=== PATIENT | male | born 1985 | race African-American/Black ===

== ENCOUNTER 2020-04-08 21:25 | Emergency (ER) | payer OTHER, SELFPAY ==
[2020-04-08 21:33] VITALS: BP 140/102; BP 142/70; PULSE 67; PULSE 90; RESP 16; TEMP 37.1; O2SAT 97; BMI 23.4
[2020-04-08 22:09] LABS: MANUAL DIFF FLAG NO
[2020-04-08 22:10] LABS: Glucose Urine UA NEG (NEG); Leukocyte Esterase Urine NEG (NEG); Nitrite Urine NEG (NEG); Specific Gravity - Urine <= 1.005 (1.005-1.025); Urine Blood NEG (NEG); Urine Ketones NEG (NEG); Urine Protein NEG (NEG-TRACE)
[2020-04-08 22:11] LABS: Basophils Percent Auto 0.5 % (0-2); Eosinophils Absolute Auto 0.1 X10*3/uL (0.0-0.4); Hematocrit 39.2 % (42-52); Hemoglobin 13.5 g/dl (14.0-18.0); Imm Gran Abs Auto 0.01 X10*3/uL (0.00-0.03); Imm Gran Pct Auto 0.2 % (0.0-0.4); Lymphocytes Absolute Auto 2.5 X10*3/uL (1.2-4.9); Lymphocytes Percent Auto 41.3 % (20-40); Mean Corpuscular HGB Conc 34.4 g/dl (31.0-36.0); Mean Corpuscular Hemoglobin 31.7 pg (27.0-33.0); Mean Platelet Volume 10.3 fL (9.4-12.4); Monocytes Absolute Auto 0.6 X10*3/uL (0.1-1.2); Neutrophils Absolute Auto 2.8 X10*3/uL (2.0-8.3); Platelet Count 199 X10*3/uL (160-400); Red Blood Count 4.26 X10*6/uL (4.60-5.80); Red Cell Distribution Width 11.9 % (11.0-16.0)
[2020-04-08 22:12] LABS: Appearance Urine CLEAR; Color Urine YELLOW; UACC Culture Trigger NO
[2020-04-08 22:13] LABS: Glucose, Whole Blood 80 mg/dL (60-115)
[2020-04-08 22:37] LABS: Ethanol 382 mg/dL
[2020-04-08 22:40] LABS: Alanine Aminotransferase 41 U/L (0-40); Albumin Level 4.7 g/dL (3.5-5.0); Alkaline Phosphatase 58 U/L (39-117); Anion Gap 14 (12-20); Aspartate Amino Transferase 62 U/L (5-37); Bilirubin Total 1.7 mg/dL (0.0-1.0); Blood Urea Nitrogen 13 mg/dL (9-16); Calcium 9.1 mg/dL (8.4-10.2); Carbon Dioxide 26 mmol/L (22-29); Chloride 107 mmol/L (96-108); Creatinine Clr Calc Pharmacy 95.5; Estimated Glomerular Filt Rate > 60; Glucose Random 91 mg/dL (60-115); Potassium 3.2 mmol/l (3.3-5.1); Sodium 144 mmol/L (135-145); Total Protein 7.6 g/dL (6.5-8.0)
[2020-04-08 22:50] LABS: Amphetamine Screen Urine Not Detected (Not Detect); Barbiturates, Urine Not Detected (Not Detect); Benzodiazepines Screen Urine Not Detected (Not Detect); Cannabinoid Screen Urine POSITIVE (Not Detect); Cocaine Screen Urine Not Detected (Not Detect); Opiate Screen Urine Not Detected (Not Detect); Phencyclidine Screen Urine Not Detected (Not Detect)
--- NOTE | 2020-04-08 23:04 | ED_ITS ---
HPI - Alcohol General Chief Complaint: ETOH/Substance Use Stated Complaint: etoh Time Seen by Provider: 04/08/20 21:46 History of Present Illness HPI narrative: This is a 34-year-old male who is brought in by EMS after being found walking around through traffic and patient reports he has been drinking a lot today. Otherwise, he denies any fevers, chills, nausea, vomiting, diarrhea, urinary pain /burning /frequency, shortness of breath, chest pain / palpitations. Related Data Allergies Allergy/AdvReac Type Severity Reaction Status Date / Time shellfish derived Allergy Unknown ANAPHYLAXIS Unverified 03/08/20 15:38 [SHELLFISH DERIVED] shellfish Allergy Unknown anaphylaxis Uncoded 10/29/15 00:00 Review of Systems Review of Systems: Pertinent positives and negatives as stated in HPI 10 point review of systems otherwise negative. PMFSH Past Medical History Source: nursing notes reviewed Medical History No known health problems Social History Social History Alcohol intake: current Alcohol intake frequency: a few times a week Alcohol type: hard liquor Smoking Status: Current every day smoker Use of substances other than those prescribed or required for medical reasons: No Advance Directives: No Advance Directives Information Provided: No Physical Exam 2 Vital Signs: Vital Signs: Vital Signs Temp Pulse Resp BP Pulse Ox 04/09/20 06:25 98.2 F 88 18 116/82 99 04/09/20 03:25 74 18 106/78 98 04/08/20 23:34 69 18 106/47 L 99 04/08/20 21:33 98.7 F 67 16 140/102 H 97 Body Mass Index 23.4 VITAL SIGNS: Reviewed. GENERAL: Well developed, well nourished, in no acute distress , smells of alcohol. HEAD: Normocephalic/atraumatic, EYES: PERRLA, EOMI intact without pain, no nystagmus/pallor/icterus noted EARS: Ext canals without abnormality, TMs non-bulging and non-erythematous NOSE: Nares patent bilateral OROPHARYNX: no oral lesions noted, posterior pharynx clear and non-erythematous without noted tonsillar enlargement/erythema/exudates NECK: Supple, no adenopathy LUNGS: Normal breath sounds. No adventitious sounds or accessory muscle use. SpO2<97%> CARDIOVASCULAR: Regular rate and rhythm without noted murmurs, no JVD or lower extremity edema. ABDOMEN: Soft, non-tender, non-distended with bowel sounds. No rigidity. No guarding. No palpable masses or hernias noted MUSCULOSKELETAL: No tenderness, deformities, or effusions noted on gross inspection. EXTREMITIES: No cyanosis, clubbing or edema. SKIN: Inspection of the skin reveals no rashes, ulcerations, jaundice, pallor, or petechiae. NEUROLOGIC: Alert and oriented x 4. Strength and sensation to light touch were grossly intact x 4. Course Course Course Narrative: This is a 34-year-old male with history and clinical presentation most consistent with alcohol intoxication. On review of all investigations there are no acute findings other than a very mild hypokalemia which will be repleted with p.o. medication. Patient does not wish for detox at this time and will be discharged when clinically sober. Reevaluation(s) Reevaluation #1: On re-evaluation patient is determined to be clinically sober and stable for discharge to home. Time: 06:32 [facility] [place] - Alcohol Lab Data Result diagrams: 04/08/20 22:01 04/08/20 22:01 Labs: Lab Results 04/08/20 04/08/20 04/08/20 Range/Units 22:01 22:01 22:01 WBC 6.0 (4.8-10.8) X10*3/uL RBC 4.26 L (4.60-5.80) X10*6/uL Hgb 13.5 L (14.0-18.0) g/dl Hct 39.2 L (42-52) % MCV 92.0 (80-98) fL MCH 31.7 (27.0-33.0) pg MCHC 34.4 (31.0-36.0) g/dl RDW 11.9 (11.0-16.0) % Plt Count 199 (160-400) X10*3/uL MPV 10.3 (9.4-12.4) fL Immature Gran % (Auto) 0.2 (0.0-0.4) % Neut % (Auto) 47.0 (45-73) % Lymph % (Auto) 41.3 H (20-40) % King % (Auto) 10.0 (2-11) % Eos % (Auto) 1.0 (0-4) % Baso % (Auto) 0.5 (0-2) % Lymph # (Auto) 2.5 (1.2-4.9) X10*3/uL King # (Auto) 0.6 (0.1-1.2) X10*3/uL Eos # (Auto) 0.1 (0.0-0.4) X10*3/uL Baso # (Auto) 0.0 (0.0-0.2) X10*3/uL Abs Immat Gran (auto) 0.01 (0.00-0.03) X10*3/uL Absolute Neuts (auto) 2.8 (2.0-8.3) X10*3/uL Absolute Nucleated RBC 0.000 (0.0-0.012) X10*3/uL Nucleated RBC % (auto) 0.0 (0.0-0.2) /100WBC Sodium 144 (135-145) mmol/L Potassium 3.2 L (3.3-5.1) mmol/l Chloride 107 (96-108) mmol/L Carbon Dioxide 26 (22-29) mmol/L Anion Gap 14 (12-20) BUN 13 (9-16) mg/dL Creatinine 1.10 (0.5-1.4) mg/dL Estim Creat Clear Calc 95.5 Estimated GFR > 60 POC Glucose (60-115) mg/dL Random Glucose 91 (60-115) mg/dL Calcium 9.1 (8.4-10.2) mg/dL Total Bilirubin 1.7 H (0.0-1.0) mg/dL AST 62 H (5-37) U/L ALT 41 H (0-40) U/L Alkaline Phosphatase 58 (39-117) U/L Total Protein 7.6 (6.5-8.0) g/dL Albumin 4.7 (3.5-5.0) g/dL Urine Color YELLOW Urine Appearance CLEAR Urine pH 7.0 (5.0-8.0) Ur Specific [place] <= 1.005 (1.005-1.025) Urine Protein NEG (NEG-TRACE) MG/DL Urine Glucose (UA) NEG (NEG) MG/DL Urine Ketones NEG (NEG) MG/DL Urine Blood NEG (NEG) Urine Nitrite NEG (NEG) Ur Leukocyte Esterase NEG (NEG) Urine Opiates Screen (Not Detect) Ur Barbiturates Screen (Not Detect) Ur Phencyclidine Scrn (Not Detect) Ur Amphetamines Screen (Not Detect) U Benzodiazepines Scrn (Not Detect) Urine Cocaine Screen (Not Detect) U Marijuana (THC) Screen (Not Detect) Ethyl Alcohol mg/dL 04/08/20 04/08/20 04/08/20 Range/Units 22:01 22:01 22:09 WBC (4.8-10.8) X10*3/uL RBC (4.60-5.80) X10*6/uL Hgb (14.0-18.0) g/dl Hct (42-52) % MCV (80-98) fL MCH (27.0-33.0) pg MCHC (31.0-36.0) g/dl RDW (11.0-16.0) % Plt Count (160-400) X10*3/uL MPV (9.4-12.4) fL Immature Gran % (Auto) (0.0-0.4) % Neut % (Auto) (45-73) % Lymph % (Auto) (20-40) % King % (Auto) (2-11) % Eos % (Auto) (0-4) % Baso % (Auto) (0-2) % Lymph # (Auto) (1.2-4.9) X10*3/uL King # (Auto) (0.1-1.2) X10*3/uL Eos # (Auto) (0.0-0.4) X10*3/uL Baso # (Auto) (0.0-0.2) X10*3/uL Abs Immat Gran (auto) (0.00-0.03) X10*3/uL Absolute Neuts (auto) (2.0-8.3) X10*3/uL Absolute Nucleated RBC (0.0-0.012) X10*3/uL Nucleated RBC % (auto) (0.0-0.2) /100WBC Sodium (135-145) mmol/L Potassium (3.3-5.1) mmol/l Chloride (96-108) mmol/L Carbon Dioxide (22-29) mmol/L Anion Gap (12-20) BUN (9-16) mg/dL Creatinine (0.5-1.4) mg/dL Estim Creat Clear Calc Estimated GFR POC Glucose 80 (60-115) mg/dL Random Glucose (60-115) mg/dL Calcium (8.4-10.2) mg/dL Total Bilirubin (0.0-1.0) mg/dL AST (5-37) U/L ALT (0-40) U/L Alkaline Phosphatase (39-117) U/L Total Protein (6.5-8.0) g/dL Albumin (3.5-5.0) g/dL Urine Color Urine Appearance Urine pH (5.0-8.0) Ur Specific [place] (1.005-1.025) Urine Protein (NEG-TRACE) MG/DL Urine Glucose (UA) (NEG) MG/DL Urine Ketones (NEG) MG/DL Urine Blood (NEG) Urine Nitrite (NEG) Ur Leukocyte Esterase (NEG) Urine Opiates Screen Not Detected (Not Detect) Ur Barbiturates Screen Not Detected (Not Detect) Ur Phencyclidine Scrn Not Detected (Not Detect) Ur Amphetamines Screen Not Detected (Not Detect) U Benzodiazepines Scrn Not Detected (Not Detect) Urine Cocaine Screen Not Detected (Not Detect) U Marijuana (THC) Screen POSITIVE H (Not Detect) Ethyl Alcohol 382 H* mg/dL Discharge Plan Discharge Clinical Impression: Hypokalemia Alcoholic intoxication Qualifiers: Complication of substance-induced condition: uncomplicated Qualified Code(s): F10.920 - Alcohol use, unspecified with intoxication, uncomplicated Patient Disposition: Home, Self-Care Instructions: Alcohol Intoxication (ED) Additional Instructions: The patient and/or family acknowledge understanding of results (as applicable), diagnosis, treatment plan, need for follow up, and symptoms that should prompt a return to the emergency room. Referrals: Physician,Unknown [Primary Care Provider] - 2 days
[2020-04-08 23:34] VITALS: BP 106/47; PULSE 69; RESP 18; O2SAT 99
--- NOTE | 2020-04-08 23:42 | PC.NURSE ---
report taken from didier gomez. pt sleeping in bed, equal and non labored rr. pt vitals wnl. pending sober to be d/c in am
[2020-04-09 03:25] VITALS: BP 106/78; PULSE 74; RESP 18; O2SAT 98
--- NOTE | 2020-04-09 05:59 | PC.NURSE ---
pt sleeping at this time. pending d.c home at this time
[2020-04-09 06:25] VITALS: BP 116/82; PULSE 88; RESP 18; TEMP 36.8; O2SAT 99
--- NOTE | 2020-04-09 06:25 | PC.NURSE ---
pt ambulated to bathroom, in nad. pending d.c vitals wnl
--- NOTE | 2020-04-09 07:09 | PC.NURSE ---
pt refusing to leave because i need to get my abdomen checked because theres something moving in my right lower abd . nurse coming on giuliana gomez aware
--- NOTE | 2020-04-09 07:45 | PC.NURSE ---
PT NOT FOUND AT BEDSIDE FOR D/C PAPERWORK. HOSPITAL ATTIRE FOUND AT BEDSIDE. MD AWARE THAT PT LEFT WITH OUT D/C PAPERWORK
== END 2020-04-09 07:48 | disposition home or self-care (01) ==
PROVIDERS: Emergency Provider Student in an Organized Health Care Education/Training Program
DX: F10.920 Alcohol use, unspecified with intoxication, uncomplicated (principal); Y90.8 Blood alcohol level of 240 mg/100 ml or more; F17.200 Nicotine dependence, unspecified, uncomplicated
CPT/HCPCS: 36415; 80053; 80307; 80320; 81003; 82947; 85025; 99283; 99284

== ENCOUNTER 2020-04-27 14:53 | Emergency (ER) | payer OTHER, SELFPAY ==
--- NOTE | 2020-04-27 15:03 | ED_ITS ---
HPI - Alcohol General Chief Complaint: ETOH/Substance Use Stated Complaint: etoh Source: patient and EMS Mode of arrival: ambulatory Limitations: no limitations History of Present Illness HPI narrative: Patient admits to drinking alcohol. Patient presently is intoxicated. Related Data Allergies Allergy/AdvReac Type Severity Reaction Status Date / Time shellfish derived Allergy Unknown ANAPHYLAXIS Unverified 03/08/20 15:38 [SHELLFISH DERIVED] shellfish Allergy Unknown anaphylaxis Uncoded 10/29/15 00:00 Review of Systems Review of Systems: Yes all other systems are reviewed and are negative Constitutional: Constitutional: Reports as per HPI and Reports no additional constitutional complaints Eyes: Eyes: Reports as per HPI and Reports no additional eye complaints ENT: Reports system reviewed and no additional complaints, except as documented and Reports as per HPI Cardiovascular: Cardiovascular: Reports as per HPI and Reports no additional cardiovascular complaints Respiratory: Respiratory: Reports as per HPI and Reports no additional respiratory complaints Gastrointestinal: Gastrointestinal: Reports as per HPI and Reports no additional gastrointestinal complaints Genitourinary: Genitourinary: Reports no additional male genitourinary complaints and Reports as per HPI Musculoskeletal: Musculoskeletal: Reports no additional musculoskeletal complaints and Reports as per HPI Integumentary/Breasts: Skin/Breast: Reports system reviewed and no additional complaints, except as docu and Reports as per HPI Neurologic: Reports system reviewed and no additional complaints, except as documented and Reports as per HPI Psychiatric: Psychiatric: Reports no additional psychiatric complaints and Reports as per HPI PMFSH Past Medical History Medical History No known health problems Social History Social History Alcohol intake: current Alcohol intake frequency: a few times a week Alcohol type: hard liquor Smoking Status: Current every day smoker Advance Directives: No Advance Directives Information Provided: Yes Physical Exam Vital Signs: Vital Signs: Last Vital Signs Temp 98 F 04/27/20 15:22 Pulse 96 04/27/20 15:22 Resp 18 04/27/20 15:22 BP 126/74 04/27/20 15:22 Pulse Ox 99 04/27/20 15:22 Body Mass Index 23.0 Const: General: cooperative, healthy appearing, comfortable and no acute distress Orientation/consciousness: patient oriented x3 HENMT: Head: Yes normal to inspection, Yes No palpable skull fracture present, Yes normocephalic, Yes atraumatic, No abrasion, No Pandya's sign, No contusion, No cranial bruits, No hematoma, No laceration, No palpable skull fracture, No raccoon eyes, No scalp tenderness, No Temporal artery tenderness present and No periorbital ecchymosis Eyes: General: appearance normal, both eyes and all related structures Visual Watters: normal visual watters by confrontation Neck: Neck: Yes normal visual inspection, Yes full ROM, Yes no lymphadenopathy, Yes no meningeal signs, Yes trachea midline and No tender Chest: Chest palpation & inspection: normal inspection of the chest, normal pa lpation of entire chest wall and no localized rib tenderness Resp: Effort & Inspection: normal respiratory effort, able to speak in complete sentences, normal respiratory pattern, no audible wheezes and no cough Auscultation: clear to auscultation bilaterally, no crackles, no rales, no rhonchi and no wheezes Cardio: Jugular venous distension: no JVD Heart sounds: S1 normal heart sound present and S2 normal heart sound present GI: Inspection: Yes normal to inspection and No abdominal wall ecchymosis Palpation (GI): Soft to palpation, not firm, nontender, no guarding and not rigid : General: No CVA tenderness and Yes no CVA tenderness Back/Spine/Pelvis: Back: no CVA tenderness, No CVA tenderness and No back tenderness Skin: General skin exam: no rashes or lesions noted Neuro: Other: Alcohol smell on breath. General: patient oriented x3, gait normal, no meningeal signs and CN's II-XI intact bilaterally Cranial nerves: Yes CN's II-XII intact bilaterally Course Course Course Narrative: Patient will be allowed to sleep in the ER and sober up before discharge. Patient will be re-evaluated. Reevaluation(s) Reevaluation #1: [place] of care team spoke with patient and patient agrees for detox program. [place] request labs to be drawn on patient so patient could be referred to detox program. Time: 15:41 Reevaluation #2: Patient was sent for imaging of head and neck due to him stating while intoxicated that he has a headache. Rule out bleed or neck fracture. Case signed out to FRANKO Barboza Time: 17:55 MDM - Alcohol MDM Narrative Medical decision making narrative: alcohol intoxication Discharge Plan Discharge Clinical Impression: Alcoholic intoxication Patient Disposition: Home, Self-Care Instructions: Alcohol Intoxication (ED), Abuse of Alcohol (ED) Additional Instructions: return to the ED for any headache, weakness, nausea, vomiting, abdominal pain, tremors, fever, chills, headache, dizziness, or any other concerning symptoms. Please follow-up with the detox program you were referred to Referrals: Beto Lau MD [Primary Care Provider] - 2 days ( alcohol abuse) Print Language: [place] Timorese
[2020-04-27 15:22] VITALS: BP 124/72; BP 126/74; PULSE 92; PULSE 96; RESP 18; TEMP 36.6; O2SAT 98; O2SAT 99; BMI 23.0
--- NOTE | 2020-04-27 15:42 | MHC.CARE ---
Addiction Consult Service note: Patient is a 34 year old Thai speaking male who presented to [facility] ED via EMS intoxicated. Patient reports he is interested detox. Patient reports he needs to get into a program. Patient willing to go to [place] or [place], stating his girlfriend lives in [place]. [facility] reports that they have 6 male beds available at this time. Patient's information has been faxed to [facility] (fax: [phone]) and [facility] (fax:[phone]). Labs have been ordered and will be faxed when they are available.
--- NOTE | 2020-04-27 16:06 | PC.NURSE ---
yonatan and priya olguin md aware.
--- NOTE | 2020-04-27 16:32 | CT_ITS ---
EXAMINATION: CT HEAD WITHOUT CONTRAST CT CERVICAL SPINE WITHOUT CONTRAST CLINICAL INFORMATION: Headache. COMPARISON: . CT scan facial bones 10/11/2018, 03/13/2012. CT of head 03/24/2015. CT cervical spine 05/27/2014 TECHNIQUE: Imaging was performed from the skull base to vertex without intravenous administration of contrast. In addition, helical noncontrast CT imaging was acquired through the cervical spine and source images were reviewed along with axial reconstructions and sagittal and coronal MPRs. [This CT examination was performed using dose optimization techniques as appropriate, variously including the following: *Automated exposure control *Adjustment of mA and/or kV according to patient size (this includes techniques or standardized protocols for targeted exams where dose is matched to indication/reason for exam; i.e. extremities or head) *Use of iterative reconstruction technique] DLP: 988 mGy-cm FINDINGS: HEAD: No intracranial mass, hemorrhage, or midline shift is visualized. The ventricles and sulci are age-appropriate. No extra-axial collections are identified. The paranasal sinuses and mastoid air cells are well aerated. 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 This is unchanged since CAT scan 03/13/2012 CERVICAL SPINE: There is no evidence of acute cervical spine fracture. Vertebral bodies remain normal in height. Cervical vertebrae have normal alignment. Cervical disc heights are normal. The facet joints are normal. No pre- or paravertebral soft tissue abnormality is identified. Limited assessment of the lung apices is unremarkable. CT/CT cervical spine wo con IMPRESSION: 1. No acute intracranial pathology. 2. No CT evidence of acute cervical spine fracture or traumatic subluxation
[2020-04-27] MEDS: Acetaminophen 325 MG TABLET 650 MG PO (18:16)
--- NOTE | 2020-04-27 19:00 | PC.NURSE ---
RN to RN report received from Dada Estevez RN. Pt laying in bed at this time, appears to be resting comfortably. Will continue to monitor.
--- NOTE | 2020-04-27 19:44 | PC.NURSE ---
Labs drawn and sent for analysis. Awaiting results. Pt ambulated to bathroom and back with slightly unsteady gait. Pt is calm/cooperative/pleasant. Pt returned to ED Bed 22H without issue. Will continue to monitor.
[2020-04-27 19:47] LABS: Basophils Percent Auto 0.5 % (0-2); Hematocrit 41.1 % (42-52); Imm Gran Abs Auto 0.02 X10*3/uL (0.00-0.03); Imm Gran Pct Auto 0.2 % (0.0-0.4); Lymphocytes Absolute Auto 2.4 X10*3/uL (1.2-4.9); Lymphocytes Percent Auto 29.8 % (20-40); MANUAL DIFF FLAG NO; Mean Corpuscular HGB Conc 34.1 g/dl (31.0-36.0); Mean Corpuscular Hemoglobin 31.6 pg (27.0-33.0); Mean Corpuscular Volume 92.8 fL (80-98); Mean Platelet Volume 9.6 fL (9.4-12.4); Monocytes Absolute Auto 0.5 X10*3/uL (0.1-1.2); Monocytes Percent Auto 5.9 % (2-11); Neutrophils Absolute Auto 5.2 X10*3/uL (2.0-8.3); Neutrophils Percent Auto 63.6 % (45-73); Platelet Count 244 X10*3/uL (160-400); Red Blood Count 4.43 X10*6/uL (4.60-5.80); Red Cell Distribution Width 12.6 % (11.0-16.0); White Blood Count 8.2 X10*3/uL (4.8-10.8)
[2020-04-27 20:16] LABS: Ethanol 289 mg/dL
[2020-04-27 20:20] LABS: Alanine Aminotransferase 15 U/L (0-40); Albumin Level 4.8 g/dL (3.5-5.0); Alkaline Phosphatase 63 U/L (39-117); Anion Gap 16 (12-20); Aspartate Amino Transferase 25 U/L (5-37); Bilirubin Total 0.3 mg/dL (0.0-1.0); Blood Urea Nitrogen 16 mg/dL (9-16); Calcium 8.4 mg/dL (8.4-10.2); Carbon Dioxide 22 mmol/L (22-29); Chloride 110 mmol/L (96-108); Creatinine Clr Calc Pharmacy 105.9; Estimated Glomerular Filt Rate > 60; Glucose Random 67 mg/dL (60-115); Potassium 3.8 mmol/l (3.3-5.1); Sodium 144 mmol/L (135-145); Total Protein 7.9 g/dL (6.5-8.0)
[2020-04-27 21:58] VITALS: BP 147/94; PULSE 86; RESP 16; O2SAT 97
--- NOTE | 2020-04-27 21:58 | MHC.CARE ---
CARE team sent patient labs to [facility] once available. CARE team facilitated a phone intake between patient and [facility]. Patient secured a midnight appointment and is expected to self-present at 11:45pm tonight. Patient was able to get in touch with his brother who will order him an Uber. Plan is for patient to discharge to the waiting room to await Uber ride. CARE team updated nurse and attending.
== END 2020-04-27 21:59 | disposition home or self-care (01) ==
PROVIDERS: Physician Assistant; Emergency Provider Internal Medicine; PCP Internal Medicine
DX: F10.129 Alcohol abuse with intoxication, unspecified (principal); M54.2 Cervicalgia; R51.9 Headache, unspecified; Y90.9 Presence of alcohol in blood, level not specified; F17.200 Nicotine dependence, unspecified, uncomplicated; Z71.6 Tobacco abuse counseling
CPT/HCPCS: 36415; 70450; 72125; 80053; 80320; 85025; 99284

== ENCOUNTER 2020-10-14 13:12 | Emergency (ER) | payer OTHER, SELFPAY ==
[2020-10-14] VITALS (8 sets, daily range): BP systolic 122–141; BP diastolic 78–94; PULSE 64–102; RESP 16–20; TEMP 36.4; O2SAT 95–97; BMI 22.0
[2020-10-14 13:33] LABS: Glucose Urine UA NEG (NEG); Leukocyte Esterase Urine NEG (NEG); Nitrite Urine NEG (NEG); PH 6.5 (5.0-8.0); Specific Gravity - Urine <= 1.005 (1.005-1.025); Urine Blood NEG (NEG); Urine Ketones NEG (NEG); Urine Protein NEG (NEG-TRACE)
[2020-10-14 13:35] LABS: Appearance Urine CLEAR; Color Urine STRAW
--- NOTE | 2020-10-14 13:40 | PC.NURSE ---
patient awake and uncooperative/not participating in triage, security at bedside, pt oob with security to urinate- obtained urine, unable to obtain vitals at this time, vitals stable that were provided by ems, pt states he jonathan bearden, will continue to monitor.
--- NOTE | 2020-10-14 14:04 | ED_ITS ---
HPI - Alcohol General Chief Complaint: ETOH/Substance Use Stated Complaint: ETOH Time Seen by Provider: 10/14/20 14:49 History of Present Illness HPI narrative: Patient presents to ED for alcohol on breath. Grandmother called EMT because patient was intoxicated and being disruptive in the house. Related Data Allergies Allergy/AdvReac Type Severity Reaction Status Date / Time shellfish derived Allergy Unknown ANAPHYLAXIS Unverified 03/08/20 15:38 [SHELLFISH DERIVED] shellfish Allergy Unknown anaphylaxis Uncoded 10/29/15 00:00 Review of Systems Review of Systems: Yes all other systems are reviewed and are negative Constitutional: Constitutional: Reports as per HPI and Reports no additional constitutional complaints Comments: Alcohol on breath Eyes: Eyes: Reports as per HPI and Reports no additional eye complaints ENT: Reports system reviewed and no additional complaints, except as documented and Reports as per HPI Cardiovascular: Cardiovascular: Reports as per HPI and Reports no additional cardiovascular complaints Respiratory: Respiratory: Reports as per HPI and Reports no additional respiratory complaints Gastrointestinal: Gastrointestinal: Reports as per HPI and Reports no additional gastrointestinal complaints Genitourinary: Genitourinary: Reports no additional male genitourinary complaints and Reports as per HPI Musculoskeletal: Musculoskeletal: Reports no additional musculoskeletal complaints and Reports as per HPI Neurologic: Reports system reviewed and no additional complaints, except as documented and Reports as per HPI Psychiatric: Psychiatric: Reports no additional psychiatric complaints and Reports as per HPI PMFSH Past Medical History Medical History No known health problems Social History Social History Alcohol intake: unknown Smoking Status: Unknown if ever smoked Use of substances other than those prescribed or required for medical reasons: Unknown Advance Directives: No Advance Directives Information Provided: Yes Physical Exam Vital Signs: Vital Signs: Last Vital Signs Temp 97.5 F 10/14/20 13:47 Pulse 86 10/14/20 18:27 Resp 17 10/14/20 18:27 BP 122/78 10/14/20 18:27 Pulse Ox 97 10/14/20 18:27 Body Mass Index 22.0 Const: Other: Alcohol on breath General: cooperative, healthy appearing, comfortable, no acute distress, well developed, alert and awake Orientation/consciousness: patient oriented x3 HENMT: Head: Yes normal to inspection, Yes No palpable skull fracture present, Yes normocephalic, Yes atraumatic, Yes abrasion, No Acrocyanosis present, No Pandya's sign, No contusion, No cranial bruits, No hematoma, No laceration, No occipital foramen tenderness, No palpable skull fracture, No raccoon eyes, No scalp lesion, No scalp tenderness, No Temporal artery tenderness present and No periorbital ecchymosis Ears: hearing grossly normal bilaterally, external ears normal and TM's normal bilaterally General nose exam: Normal external nose present and Normal nares present Throat: Yes posterior oropharynx normal, Yes tonsils normal and Yes uvula midline Eyes: General: appearance normal, both eyes and all related structures Neck: Neck: Yes normal visual inspection, Yes full ROM, Yes no lymphadenopathy, Yes no meningeal signs, Yes trachea midline, Yes supple and No tender Resp: Effort & Inspection: normal respiratory effort and able to speak in complete sentences Auscultation: clear to auscultation bilaterally Cardio: Jugular venous distension: no JVD Heart sounds: S1 normal heart sound present and S2 normal heart sound present GI: Inspection: Yes normal to inspection and No abdominal wall ecchymosis Palpation (GI): Soft to palpation, not firm, nontender, no guarding and not rigid : General: Yes CVA tenderness and Yes no CVA tenderness Back/Spine/Pelvis: Back: no CVA tenderness, CVA tenderness and No back tenderness Skin: General skin exam: no rashes or lesions noted and elasticity normal Neuro: General: patient oriented x3, no meningeal signs and CN's II-XI intact bilaterally Cranial nerves: Yes CN's II-XII intact bilaterally Extrem: General: Yes normal to inspection and Yes full ROM Psych: Appearance: grossly normal, well kempt and disheveled Course Course Course Narrative: Patient will be allowed to sleep in the ER to come sober. Patient toxication Reevaluation(s) Reevaluation #1: Patient to be sedated with Haldol and Ativan due to him being destructive in the ED. Grandmother call and does not want patient come back to the house. Mother states she will have a restraining order against patient. Signed out to FRANKO Little. MDM - Alcohol Lab Data Labs: Lab Results 10/14/20 10/14/20 Range/Units 13:25 13:25 Urine Color STRAW Urine Appearance CLEAR Urine pH 6.5 (5.0-8.0) Ur Specific [place] <= 1.005 (1.005-1.025) Urine Protein NEG (NEG-TRACE) MG/DL Urine Glucose (UA) NEG (NEG) MG/DL Urine Ketones NEG (NEG) MG/DL Urine Blood NEG (NEG) Urine Nitrite NEG (NEG) Ur Leukocyte Esterase NEG (NEG) Urine Opiates Screen Not Detected (Not Detect) Ur Barbiturates Screen Not Detected (Not Detect) Ur Phencyclidine Scrn Not Detected (Not Detect) Ur Amphetamines Screen Not Detected (Not Detect) U Benzodiazepines Scrn Not Detected (Not Detect) Urine Cocaine Screen Not Detected (Not Detect) U Marijuana (THC) Screen POSITIVE H (Not Detect) Discharge Plan Discharge Clinical Impression: Alcohol abuse Patient Disposition: Home, Self-Care Instructions: Abuse of Alcohol (ED) Additional Instructions: Return to the ED immediately suicidal/homicidal ideation, auditory/visual hallucinations, physical complaints, or any other concerning symptoms. Print Language: Slovenian
[2020-10-14 14:05] LABS: Barbiturates, Urine Not Detected (Not Detect); Benzodiazepines Screen Urine Not Detected (Not Detect); Cannabinoid Screen Urine POSITIVE (Not Detect); Cocaine Screen Urine Not Detected (Not Detect); Opiate Screen Urine Not Detected (Not Detect); Phencyclidine Screen Urine Not Detected (Not Detect)
[2020-10-14 14:07] LABS: Amphetamine Screen Urine Not Detected (Not Detect)
[2020-10-14] MEDS: LORazepam 2 MG/ML VIAL IM (14:59)
--- NOTE | 2020-10-14 15:06 | PC.NURSE ---
pt offered ativan to calm his agitation, pt refused and it was decided with the provider to administer with the assist of security. security came to assist if needed, patient decided to allow administration of ativan once security was present. unable to obtain vitals at this time, rr 18, please see medication restraint care flow sheet for further documentation.
[2020-10-14] MEDS: Haloperidol Lactate 5 MG/ML VIAL IM (16:45)
--- NOTE | 2020-10-14 16:47 | PC.NURSE ---
patient continues to be agitated and uncooperative, security continues to assist staff with this patient, provider ordered 5mg haltol which was administered, please see second medication restraint care flow sheet, vitals are stable as documented- pt refused temp, will continue to monitor.
--- NOTE | 2020-10-14 18:28 | PC.NURSE ---
pt continues to sleep after administration of haldol, vitals are stable, unable to obtain temp at this time, will continue to monitor.
--- NOTE | 2020-10-14 20:51 | PC.NURSE ---
patient currently sleeping, rr 17-18, will continue to monitor.
--- NOTE | 2020-10-14 21:56 | PC.NURSE ---
patient continues to sleep, rr running between 18-20, will continue to monitor.
[2020-10-15 02:00] VITALS: RESP 16
== END 2020-10-15 06:44 | disposition home or self-care (01) ==
PROVIDERS: Emergency Provider Emergency Medicine; PCP Internal Medicine
DX: F10.10 Alcohol abuse, uncomplicated (principal); Y90.9 Presence of alcohol in blood, level not specified; F12.90 Cannabis use, unspecified, uncomplicated; R45.1 Restlessness and agitation
CPT/HCPCS: 80307; 81003; 96372; 99285; J2060

== ENCOUNTER 2020-10-23 12:51 | Emergency (ER) | payer OTHER, SELFPAY ==
--- NOTE | ~2020-10-23 | XR_ITS ---
EXAMINATION: XR HAND, RIGHT CLINICAL INFORMATION: Trauma, pain fourth MCP COMPARISON: Radiographs right hand 10/02/2014 TECHNIQUE: PA, lateral, and oblique views of the right hand. FINDINGS: There is an acute fracture involving the neck 4th metacarpal with mild dorsal angulation of the fracture site. There is no dislocation or destructive process. There is an old healed fracture with mild posttraumatic deformity involving the neck 5th metacarpal. The remainder of the bony structures are unremarkable. The ulnar variance is neutral. XR/XR hand RT min 3V IMPRESSION: 1. Acute fracture neck 4th metacarpal with mild dorsal angulation fracture site. 2. Old healed fracture neck 5th metacarpal.
--- NOTE | ~2020-10-23 | XR_ITS ---
EXAMINATION: XR RIBS, LEFT CLINICAL INFORMATION: Trauma. Pain lower left anterior ribs. COMPARISON: Chest and left ribs 08/26/2018, chest and right ribs 11/01/2016. TECHNIQUE: Frontal view chest is performed along with 3 views of the left ribs for a total of 4 views. FINDINGS: There is no visible left rib fracture or rib destructive process. The lungs are clear. The vascularity is normal. There is no pneumothorax or pleural reaction or effusion. The costophrenic sulci are well-defined. The heart is normal in size. The hilar and mediastinal contours are normal. No subcutaneous emphysema. No free air beneath the diaphragms. XR/XR ribs LT min 3V w CXR1V IMPRESSION: Unremarkable examination.
[2020-10-23 13:25] VITALS: BP 129/69; PULSE 62; RESP 17; TEMP 36.8; O2SAT 97; BMI 23.6
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
== END 2020-10-23 15:37 | disposition home or self-care (01) ==
PROVIDERS: Emergency Provider Emergency Medicine; PCP Internal Medicine
DX: S62.364A Nondisplaced fracture of neck of fourth metacarpal bone, right hand, initial encounter for closed fracture (principal); Y04.0XXA Assault by unarmed brawl or fight, initial encounter; R07.81 Pleurodynia; Y93.89 Activity, other specified; Y92.019 Unspecified place in single-family (private) house as the place of occurrence of the external cause; Y99.9 Unspecified external cause status
CPT/HCPCS: 29125; 71101; 73130; 99283

== ENCOUNTER 2020-10-23 18:12 | Emergency (ER) | payer OTHER, SELFPAY ==
--- NOTE | 2020-10-23 18:35 | ED.ALCOHOL ---
HPI - Alcohol General Chief Complaint: ETOH/Substance Use Stated Complaint: ETOH Time Seen by Provider: 10/23/20 18:35 Source: EMS Mode of arrival: EMS Limitations: no limitations History of Present Illness HPI narrative: 35-year-old male with extensive history of alcohol abuse he was in fact seen here earlier today for alcohol intoxication he re-presented today after drinking alcohol calling EMS. Furthermore he was found to have acute fracture neck of the 4th metacarpal with mild distal angulation of the fracture site and old healed fracture neck 5th metacarpal. He has a ulnar gutter in place at this time. He denies any new fall or injury. Admits to alcohol use with strong odor of ETOH. He denies any other illicit drugs. He denies any pain or discomfort. MD complaint: alcohol intoxication Chronic alcohol use: Yes Previous visits for alcohol intoxication: Yes Recent trauma: No Associated symptoms: denies other symptoms Treatments prior to arrival: none Related Data Previous Rx's Medication Instructions Recorded ibuprofen 800 mg PO Q8H PRN #20 tab 10/23/20 Allergies Allergy/AdvReac Type Severity Reaction Status Date / Time shellfish derived Allergy Unknown ANAPHYLAXIS Verified 10/23/20 13:25 [SHELLFISH DERIVED] shellfish Allergy Unknown anaphylaxis Uncoded 10/29/15 00:00 Review of Systems Review of Systems: Yes Unobtainable due to mental condition PMFSH Past Medical History Medical History No known health problems Social History Social History Alcohol intake: current Alcohol intake frequency: 3 or more drinks per day Alcohol type: hard liquor Smoking Status: Never smoker Use of substances other than those prescribed or required for medical reasons: Unknown Advance Directives: No Advance Directives Information Provided: Yes Physical Exam Vital Signs: Vital Signs: Last Vital Signs Pulse 65 10/23/20 22:20 Resp 15 10/23/20 22:20 BP 119/78 10/23/20 22:20 Pulse Ox 98 10/23/20 22:20 Body Mass Index 19.8 Reviewed Const: Other: Appears intoxicated with strong odor of EtOH General: cooperative; No acute distress or intoxicated appearing Nutritional Appearance: average body habitus Orientation/consciousness: patient oriented x3 HENMT: Head: Yes normal to inspection Ears: hearing grossly normal bilaterally Eyes: General: appearance normal, both eyes and all related structures Visual Watters: normal visual watters by confrontation Neck: Neck: Yes normal visual inspection, No positive Brudzinski's sign, No positive Kernig's sign and No tender Thyroid: Thyroid normal Chest: Chest palpation & inspection: normal inspection of the chest Resp: Effort & Inspection: normal respiratory effort Auscultation: clear to auscultation bilaterally Cardio: Jugular venous distension: no JVD Rhythm: regular rhythm Heart sounds: S1 normal heart sound present and S2 normal heart sound present GI: Inspection: Yes normal to inspection Palpation (GI): Soft to palpation Percussion: Yes normal to percussion Auscultation: normal bowel sounds : General: Yes no CVA tenderness Back/Spine/Pelvis: Back: no CVA tenderness Skin: General skin exam: no rashes or lesions noted Neuro: General: patient oriented x3 Extrem: Other: Right upper extremity with ulnar gutter in place splint appears slightly disheveled this will be redone. Neurovascularly intact cap refill within normal limits. Fingers color within normal range. General: Yes normal to inspection Course Course Course Narrative: 1829 Plan for reapplication of the right ulnar gutter splint. Will check serum ethanol and DS will appreciate input from care team/substance abuse counselor for detox although he does not display any interest at this time will allow for clinical sobriety and re-evaluate. Reevaluation(s) Reevaluation #1: [id number] Clinically sober his been up walking around a sandwich. He is ulnar gutter splint on his right hand he will follow-up with orthopedics. He does not feel that he is home with alcohol and does not want to go to detox center. Discharge Plan Discharge Clinical Impression: Alcoholic intoxication Qualifiers: Complication of substance-induced condition: with unspecified complication Qualified Code(s): F10.929 - Alcohol use, unspecified with intoxication, unspecified Patient Disposition: Home, Self-Care Additional Instructions: Please leave splint on Follow-up with Orthopedics within the next 1 week Stop drinking alcohol Follow up with her for [place] Go directly to detox Drinking alcohol regularly can cause alcohol related chronic medical problems including but not limited to organ damage and . Return if any concerns or worsening symptoms Thank you Prescriptions: No Action ibuprofen 800 mg tablet 800 mg PO Q8H PRN (Reason: pain) Qty: 20 RF: 0 Referrals: Sonya Clinton MD [Physician] - 3 days Interventions: ED Discharge Assessment Last Done: 10/23/20 22:28
[2020-10-23 18:46] VITALS: PULSE 80; RESP 18; O2SAT 100; BMI 19.8
[2020-10-23 20:00] VITALS: BP 128/48; PULSE 84; RESP 18; O2SAT 98
[2020-10-23 22:00] VITALS: RESP 15
--- NOTE | 2020-10-23 22:10 | PC.NURSE ---
patient ambulated in the hallway with a very steady gait, will make provider aware.
[2020-10-23 22:20] VITALS: BP 119/78; PULSE 65; RESP 15; O2SAT 98
== END 2020-10-23 22:44 | disposition home or self-care (01) ==
PROVIDERS: Emergency Provider Internal Medicine
DX: F10.120 Alcohol abuse with intoxication, uncomplicated (principal); Y90.9 Presence of alcohol in blood, level not specified; S62.364D Nondisplaced fracture of neck of fourth metacarpal bone, right hand, subsequent encounter for fracture with routine healing; Y04.0XXD Assault by unarmed brawl or fight, subsequent encounter
CPT/HCPCS: 29125; 71101; 73130; 99283; 99284; 99285

== ENCOUNTER 2020-11-07 13:30 | Outpatient (REF) | payer OTHER, SELFPAY ==
--- NOTE | ~2020-11-07 | XR_ITS ---
EXAMINATION: XR HAND, RIGHT CLINICAL INFORMATION: Right hand pain. COMPARISON: Most recent right hand radiographs dated 10/23/2020. TECHNIQUE: PA, lateral, and oblique views of the right hand. FINDINGS: Redemonstration of a distal 4th metacarpal fracture with apex dorsal angulation. No significant change in anatomic alignment. No significant new bone/callus formation. No osseous erosion. No new fracture or dislocation. No abnormal soft tissue calcification. XR/XR hand RT min 3V IMPRESSION: Distal 4th metacarpal fracture, unchanged when compared to the most recent radiographs.
== END 2020-11-07 13:31 | disposition home or self-care (01) ==
LOC: HO.HOSX 13:30
PROVIDERS: Visit Provider Orthopaedic Surgery
DX: S62.334A Displaced fracture of neck of fourth metacarpal bone, right hand, initial encounter for closed fracture (principal)
CPT/HCPCS: 73130; 99202

== ENCOUNTER 2020-12-05 08:30 | Outpatient (REF) | payer OTHER, SELFPAY | END 2020-12-05 08:31 | disposition home or self-care (01) | LOC: HO.HOSX 08:30 | PROVIDERS: Visit Provider Orthopaedic Surgery | DX: Z13.89 Encounter for screening for other disorder (principal) ==

== ENCOUNTER 2021-02-26 17:08 | Emergency (ER) | payer OTHER, SELFPAY ==
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
[2021-02-26 17:33] VITALS: BP 158/78; PULSE 111; PULSE 124; RESP 18; TEMP 37; O2SAT 97; BMI 26.6
--- NOTE | 2021-02-26 18:06 | PC.NURSE ---
PT APPEARS TO HAVE LEFT.
== END 2021-02-26 18:07 | disposition left against medical advice (07) ==
PROVIDERS: Emergency Provider Emergency Medicine; PCP Internal Medicine
DX: F10.20 Alcohol dependence, uncomplicated (principal); Y90.9 Presence of alcohol in blood, level not specified
CPT/HCPCS: 99281; 99283

== ENCOUNTER 2021-07-22 02:15 | Emergency (ER) | payer OTHER, SELFPAY ==
[2021-07-22 02:24] VITALS: BP 161/97; PULSE 66; RESP 16; TEMP 36.3; O2SAT 99; BMI 23.3
--- NOTE | 2021-07-22 02:30 | ED_ITS ---
HPI - Alcohol General Chief Complaint: ETOH/Substance Use Stated Complaint: etoh Time Seen by Provider: 07/22/21 02:26 History of Present Illness HPI narrative: Positive ETOH. Patient denies any suicidal homicidal ideation has no specific complaint. Found after drinking. Given an option to come to the ED. Related Data Previous Rx's Medication Instructions Recorded ibuprofen 800 mg tablet 800 mg PO Q8H PRN #20 tab 10/23/20 Allergies Allergy/AdvReac Type Severity Reaction Status Date / Time shellfish derived Allergy Unknown ANAPHYLAXIS Verified 02/26/21 17:32 [SHELLFISH DERIVED] shellfish Allergy Unknown anaphylaxis Uncoded 10/29/15 00:00 Review of Systems Verdana 4l Review of Systems: Verdana 4d No fever no chills no chest Verdana 4d pain or shortness breath no dizziness no nausea no vomiting Verdana 4d PMFSH Past Medical History Attestation statement: The following information was validated with the patient. Medical History No known health problems Social History Social History Alcohol intake: current Alcohol intake frequency: 3 or more drinks per day Alcohol type: hard liquor Advance Directives: No Current occupational status: unemployed Current occupation: rt hand Physical Exam Verdana 4l Vital Signs: Verdana 4d Verdana 4d Vital Signs: Verdana 4d Verdana 4Bd Last Vital Signs Verdana 4d Instructional Leader New 4d Instructional Leader New 4d Temp 97.4 F 07/22/21 02:24 Instructional Leader New 4d Resp 16 07/22/21 02:24 Instructional Leader New 4d BP 161/97 H 07/22/21 02:24 Pulse Ox 99 07/22/21 02:24 BMI result Body Mass Index 23.3 Appearance: Alert. Oriented X3. No acute distress. Eyes: Pupils equal, round and reactive to light. ENT: Pharynx normal. Neck: Normal inspection. Neck supple. No lymph nodes noted. No crepitus CVS: Normal heart rate and rhythm. Pulses normal. Normal S1 and S2 Respiratory: No respiratory distress. Breath sounds normal. No Wheezing. No ra les Abdomen: Soft and nontender. No rigidity. No distention. good BS x4 Skin: Skin warm and dry. Normal skin color. Normal skin turgor. Extremities: No lower extremity edema. Neurovascular intact to all extremities. No Lacerations. No Rash Neuro: Oriented X 3. No motor deficit. No sensory deficit. Moving all extermities. No slurred speech MDM - Alcohol MDM Narrative Medical decision making narrative: Patient well appearing no acute distress alcohol greater than 300 currently awaiting his clinical sobriety. No suicidal homicidal ideation. Lab Data Labs: Lab Results 07/22/21 07/22/21 07/22/21 Range/Units 02:39 02:54 02:54 POC Glucose 68 (60-115) mg/dL Urine Opiates Screen Not Detected (Not Detect) Urine Fentanyl Screen Not Detected (Not Detect) Ur Barbiturates Screen Not Detected (Not Detect) Ur Phencyclidine Scrn Not Detected (Not Detect) Ur Amphetamines Screen Not Detected (Not Detect) U Benzodiazepines Scrn Not Detected (Not Detect) Urine Cocaine Screen POSITIVE H (Not Detect) U Marijuana (THC) Screen POSITIVE H (Not Detect) Ethyl Alcohol 419 H* mg/dL Discharge Plan Discharge Clinical Impression: Alcoholic intoxication Patient Disposition: Home, Self-Care Prescriptions: No Action ibuprofen 800 mg tablet 800 mg PO Q8H PRN (Reason: pain) Qty: 20 0RF Referrals: Physician,Unknown J [Primary Care Provider] - 2 days (Please stop drinking a lcohol. Please go to detox as soon as possible.)
[2021-07-22 02:44] LABS: Glucose, Whole Blood 68 mg/dL (60-115)
[2021-07-22 03:15] LABS: Amphetamine Screen Urine Not Detected (Not Detect); Barbiturates, Urine Not Detected (Not Detect); Benzodiazepines Screen Urine Not Detected (Not Detect); Cannabinoid Screen Urine POSITIVE (Not Detect); Cocaine Screen Urine POSITIVE (Not Detect); Fentanyl, urine Not Detected (Not Detect); Opiate Screen Urine Not Detected (Not Detect); Phencyclidine Screen Urine Not Detected (Not Detect)
[2021-07-22 03:17] LABS: Ethanol 419 mg/dL
[2021-07-22 07:01] VITALS: BP 116/74; PULSE 75; RESP 16; TEMP 36.5; O2SAT 98
[2021-07-22 07:12] LABS: Glucose, Whole Blood 61 mg/dL (60-115)
== END 2021-07-22 08:16 | disposition home or self-care (01) ==
PROVIDERS: Emergency Medicine Emergency Medical Services; Emergency Provider Emergency Medicine Emergency Medical Services
DX: F10.920 Alcohol use, unspecified with intoxication, uncomplicated (principal); Y90.8 Blood alcohol level of 240 mg/100 ml or more
CPT/HCPCS: 36415; 80307; 82077; 82947; 99284

== ENCOUNTER 2021-08-05 19:53 | Emergency (ER) | payer OTHER, SELFPAY ==
[2021-08-05 20:01] VITALS: RESP 16; BMI 27.3
--- NOTE | 2021-08-05 20:02 | ED.ALCOHOL ---
HPI - Alcohol General Chief Complaint: ETOH/Substance Use Stated Complaint: OVERDOSE Time Seen by Provider: 08/05/21 20:00 Source: patient and EMS Mode of arrival: EMS Limitations: no limitations History of Present Illness HPI narrative: Appointed patient had alcohol and marijuana denied any opiate use but patient was given 4 mg of Narcan at the scene as he was unresponsive patient been here before and had cocaine marijuana positive on arrival patient is alert oriented x3 ambulatory steady gait refusing to stay in the hospital denied use of any opiates wants to go home Related Data Previous Rx's Medication Instructions Recorded ibuprofen 800 mg tablet 800 mg PO Q8H PRN #20 tab 10/23/20 Allergies Allergy/AdvReac Type Severity Reaction Status Date / Time shellfish derived Allergy Unknown ANAPHYLAXIS Verified 02/26/21 17:32 [SHELLFISH DERIVED] shellfish Allergy Unknown anaphylaxis Uncoded 10/29/15 00:00 Review of Systems Review of Systems: Yes all other systems are reviewed and are negative [facility] Past Medical History Medical History No known health problems Social History Social History Alcohol intake: current Alcohol intake frequency: 3 or more drinks per day Alcohol type: hard liquor Advance Directives: No Current occupational status: unemployed Current occupation: rt hand Physical Exam ED Vital Signs: Vital Signs - 24 hr 08/05/21 20:01 Respiratory Rate 16 BMI result Body Mass Index 27.3 Appearance: Alert. Oriented X3. No acute distress. etoh++ Eyes: PERRLA, No Nystagmus ENT: Pharynx normal. Oral Mucosa moist Neck: Normal inspection. Neck supple. CVS: Normal heart rate and rhythm. Pulses normal. Respiratory: No respiratory distress. Equal air entry bilateral, no wheezing/rales/rhonchi Abdomen: Soft and nontender. Bowel sounds are present, no mass palpable, no CVA tenderness Skin: Skin warm and dry. Normal skin color. Normal skin turgor. Extremities: No lower extremity edema. No calf tenderness Neuro: Oriented X 3. No motor deficit. No sensory deficit.No cerebellar signs , cranial nerves II-XII intact walking is steady gait MDM - Alcohol MDM Narrative Medical decision making narrative: Patient intoxicated but walking is steady gait with stable vitals refusing any help to go to detox denied any use of opiates will discharge patient Discharge Plan Discharge Clinical Impression: Alcohol abuse Patient Disposition: Home, Self-Care Instructions: Abuse of Alcohol (ED) Additional Instructions: Stop drinking alcohol and follow with detox Prescriptions: No Action ibuprofen 800 mg tablet 800 mg PO Q8H PRN (Reason: pain) Qty: 20 0RF
[2021-08-05 20:06] VITALS: BP 151/108; PULSE 90; RESP 16; O2SAT 97
== END 2021-08-05 20:20 | disposition home or self-care (01) ==
PROVIDERS: Emergency Provider Internal Medicine
DX: F10.10 Alcohol abuse, uncomplicated (principal); Y90.9 Presence of alcohol in blood, level not specified
CPT/HCPCS: 99283